=== PATIENT | female | born 1975 | race Caucasian/White ===

== ENCOUNTER 2018-06-05 18:22 | Emergency (ER) | payer OTHER ==
--- NOTE | 2018-06-05 18:39 | EDPHY ---
H & P Time Seen by Provider: 06/05/18 18:28 HPI/ROS: HPI Left arm injury. Work related. 43-year-old female by private vehicle with a friend. This patient was at work. She tripped over a [place] landing on an outstretched left upper extremity. She is left hand dominant. She complains of pain to the ulnar aspect of her left wrist and more significantly her left elbow. She reports hearing a pop in her left elbow and has some pain and swelling to the posterior aspect of the left elbow. She did not hit her head. There was no loss of consciousness. She denies any neck pain. No other extremity pain. No loss of sensation or weakness in her left upper extremity. ROS: Constitutional: No fever, no chills. No weakness. Respiratory: No cough. No shortness of breath. Cardiac: No chest pain, no palpitations. Gastrointestinal: No abdominal pain, no vomiting, no diarrhea. Musculoskeletal: No back pain. No neck pain. As above. Skin: No rashes. No lacerations or abrasions. Neurological: No headache. No focal weakness or altered sensation. Past medical history: No significant past medical history. She is not on any prescription medications. Social history: Smoker. No alcohol. Here with friend. Physical Exam: General Appearance: Alert, no distress. This patient is responding to questions appropriately and in full sentences. This patient appears well- hydrated and well-nourished. Head: Normocephalic atraumatic. Face: Facial bones are stable on palpation. Eyes: Pupils equal and round and reactive to light, no pallor or injection. No lid erythema or edema. Neurological: Motor sensory function is intact. Cranial nerves are normal. Cerebellar function intact. Skin: Warm and dry, no rashes. No lacerations, abrasions or contusions. Musculoskeletal: Neck is supple and nontender. The trachea is midline. No midline cervical, thoracic, lumbar or sacral tenderness on palpation. Left upper extremity exam: She has some vague tenderness on palpation which is mild over the ulnar aspect of the left dorsal wrist. It is exacerbated mildly with extension of the wrist. There is no tenderness on palpation of the bony aspects of the left hand. No snuffbox tenderness. No pain on axial compression of the thumb or other digits. There is no tenderness on palpation or deformity or soft tissue abnormalities noted on inspection of the forearm and arm. The left elbow has some mild swelling over the posterior aspect of the olecranon. She is able to flex the left elbow passively and actively and extended without significant discomfort. She does have tenderness on palpation over the radial head but denies significant pain with supination and pronation of her forearm. The left shoulder joint is unremarkable on exam. The glenohumeral joint ranges freely without any pain or impingement in all planes of motion. No tenderness over the left AC joint. The axillary nerve distribution is intact. The left upper extremity is neurovascularly intact. Extremities are symmetrical, full range of motion except noted. All joints in the bilateral upper and bilateral lower extremities range without pain or impingement except noted. No tenderness on palpation of the long bones in the bilateral upper and bilateral lower extremities except noted. Psychiatric: No agitation. No depression. Database: EKG: Imaging: Left wrist x-ray series: Negative for fracture, subluxation, dislocation. Interpreted by me. Left elbow x-ray series: Significant for a nondisplaced radial head fracture. X-rays reviewed by myself. Procedures: Procedure: Splint placement. A ortho glass posterior mold splint was applied to the left upper extremity in neutral position at 90 degrees. After application of the splint I returned and re-examined the patient. The splint was adequately immobilizing the joint and distal to the splint the patient's circulation and sensation was intact. Emergency department course: Triage vital signs reviewed. She took 2 to approximate in for pain this morning. She will be given 600 mg of ibuprofen in the emergency department. She will be given [place] if needed. X-rays as noted above obtained. 7:00 p.m., the patient was re-evaluated, results of her x-rays discussed with her. Diagnosis of radial head fracture of the left elbow and mild sprain of the left wrist discussed. The left upper extremity was placed in a posterior Ortho Glass splint. She was provided with a sling for comfort. She feels comfortable going home. I will have her follow up with her workman's Comp physician for re-evaluation in 2-3 days as well as Orthopedics. She feels comfortable with this plan. Ibuprofen dosing was discussed with her. Return to emergency department precautions reviewed. All of her questions were answered. She was discharged from the emergency department in good condition with her friend. Differential Diagnosis: The differential diagnosis on this patient includes but is not limited to radial head fracture, left elbow sprain, left wrist sprain. Left elbow dislocation, traumatic brain injury, spinal injury, other significant traumatic injury than noted unlikely. This represents a partial list of diagnoses considered. These considerations are based on history, physical exam, past history, reassessment and diagnostic testing. Constitutional: Initial Vital Signs Temperature (C) 37.1 C 06/05/18 18:31 Heart Rate 86 06/05/18 18:31 Respiratory Rate 18 06/05/18 18:31 Blood Pressure 141/85 H 06/05/18 18:31 O2 Sat (%) 98 06/05/18 18:31 O2 Delivery Mode Room Air Allergies/Adverse Reactions: morphine Allergy (Verified 06/05/18 18:30) Penicillins Allergy (Verified 06/05/18 18:30) Home Medications: Medication Instructions Recorded NK [No Known Home Meds] 06/05/18 Medical Decision Making - Diagnostics Imaging Results: Imaging Impressions Elbow X-Ray 06/05/18 18:32 Impression: Acute nondisplaced radial head fracture. Wrist X-Ray 06/05/18 18:32 Impression: Negative. No acute wrist fracture. Departure - Departure Disposition: Home, Routine, Self-Care Clinical Impression: Left wrist sprain, Fracture of radial head, left, closed Condition: Good Instructions: Elbow Fracture (ED) Additional Instructions: Read and follow provided instructions. Follow-up with your primary care physician or workman's Comp physician as well as Orthopedics in 2-3 days for re-evaluation. Ibuprofen dosin mg every 6 hours with meals for the next 3 days only. Take only as needed for pain. Keep splint in place until seen on follow-up with Orthopedics. Return to the emergency department for worsening pain, swelling, discoloration, loss of sensation, weakness or other serious concerns. Referrals: Marty Vang MD [Medical Doctor] - As per Instructions
[2018-06-05 18:41] VITALS: BP 141/85
== END 2018-06-05 19:27 | disposition home or self-care (01) ==
LOC: CED 18:22
PROC: 2W3DX1Z Immobilization of Left Lower Arm using Splint (ICD-10-PCS; principal; 2018-06-05)
DX: S52.122A Displaced fracture of head of left radius, initial encounter for closed fracture (principal); S63.502A Unspecified sprain of left wrist, initial encounter; W01.0XXA Fall on same level from slipping, tripping and stumbling without subsequent striking against object, initial encounter; Y99.0 Civilian activity done for income or pay; Z88.0 Allergy status to penicillin
CPT/HCPCS: 73080-PO; 73110-PO; 99283-ER; A4565-ER